=== PATIENT | female | born 1960 | race American Indian/Alaskan Native ===

== ENCOUNTER 2019-12-26 20:17 | Emergency (ER) | payer MEDICARE ==
[2019-12-26 21:29] VITALS: BP 143/78
== END 2019-12-27 01:00 | disposition left against medical advice (07) ==
LOC: ED 20:17
DX: S09.90XA Unspecified injury of head, initial encounter (principal); Z53.21 Procedure and treatment not carried out due to patient leaving prior to being seen by health care provider; V89.2XXA Person injured in unspecified motor-vehicle accident, traffic, initial encounter; Y93.89 Activity, other specified; Y92.410 Unspecified street and highway as the place of occurrence of the external cause; Y99.8 Other external cause status